=== PATIENT | male | born 1975 | race Caucasian/White ===

== ENCOUNTER 2022-09-04 09:43 | Emergency (ER) | payer OTHER, SELFPAY ==
[2022-09-04] VITALS (11 sets, daily range): BP systolic 142–170; BP diastolic 101–109; PULSE 92–107; RESP 16–18; TEMP 36.8; O2SAT 97–100; BMI 34.7
--- NOTE | 2022-09-04 10:05 | CT_ITS ---
WS: [id number] CT ABDOMEN PELVIS TECHNIQUE: Contrast-enhanced CT of the abdomen and pelvis with coronal and sagittal reformatted image s. CLINICAL INFORMATION: cramping ab pain, bloody diarrhea COMPARISON: None. DLP: 1041.[address] scans at [facility] use at least one of these dose optimization techniques: automated e xposure control; mA and/or kV adjustment per patient size (includes targeted exams where dose is matc hed to clinical indication); or iterative reconstruction. FINDINGS: Prior gastric bypass. Cholecystectomy. Diffuse diallo colonic thickening with submucosal enhancement inv olving the entire colon compatible with colitis. This is likely infectious or inflammatory. Recommend correlation with history of inflammatory bowel disease. No drainable fluid collections. No free flui d in the pelvis. Lung bases are well aerated. Diffuse fatty infiltration liver. Normal portal vein and splenic vein. N ormal spleen. Normal pancreatic parenchymal enhancement. Gastric bypass. Adrenal glands are normal. C eliac and SMA are patent. Normal caliber abdominal aorta. Normal renal parenchymal enhancement. No hydronephrosis. LEFT renal cortical cysts. Prominent lymph n ode in the upper abdomen at the GE junction nonspecific but likely reactive. Reactive lymph nodes in the RIGHT lower quadrant. 2 vague low-attenuation areas in the RIGHT hepatic lobe near the gallbladde r fossa likely hepatic cysts, hemangiomas, or focal fat measuring approximately [address]/CT abdomen pelvis w con* [id number] IMPRESSION: 1. Above-described findings compatible with diffuse pancolitis likely infectio us or inflammatory. Recommend correlation with inflammatory bowel disease. A fe w reactive lymph nodes in the RIGHT lower quadrant. 2. No drainable fluid collections. 3. Terminal ileum appears normal. 4. Diffuse fatty infiltration of the liver. 5. Prior gastric bypass. Attempted verbal notification TOM Jonas at 09/04/2022 11:17 AM.
--- NOTE | 2022-09-04 10:06 | ED_ITS ---
HPI - Abdominal Pain General: Chief Complaint: Abdominal Pain Stated Complaint: abd pain, hasn't eaten in three days Time Seen by Provider: 09/04/22 09:45 Source: patient Mode of arrival: ambulatory Limitations: no limitations History of Present Illness: Patient is a 47-year-old male who presents to ED today along with his for concerns of severe abdominal pain/cramping, nausea, and diarrhea over the past 48 to 72 hours. Patient states he has noticed bright red blood in his diarrhea stools. He is reporting approximately 50 loose stools over a 24-hour period. He states he feels nauseous but has not had any episodes of emesis. No fevers. States he has not ate or drank anything over the past 72 hours as this seems to worsen symptoms. Denies sick contacts or poor food exposures. Previous abdominal surgeries include a cholecystectomy and gastric sleeve surgery. Patient does report fairly heavy chronic alcohol use. Denies NSAID use. MD elicited complaint: abdominal pain Pertinent past history: none Onset (ago): day(s) Pain Consistency: constant Location: Diffuse Severity: severe Quality: cramping Radiation: none Migration to: no migration Exacerbating factors: eating Relieving factors: nothing Associated Symptoms: Reports GI cramping, diarrhea, hematochezia and nausea; Denies chills, dysuria, fever(s), heartburn, hematuria, melena and vomiting Review of Systems Const: Denies: fever(s), chills, body aches, fatigue or malaise Card: Denies: chest pain Resp: Denies: dyspnea GI: Reports: abdominal pain, nausea, diarrhea, GI cramping and hematochezia; Denies: vomiting, heartburn or melena : Denies: flank pain, dysuria or hematuria Musc: Denies: neck pain, back pain, extremity pain or joint pain Skin/Breast: Denies: rash Neuro: Reports: dizziness; Denies: headache(s), numbness in extremities, weakness in extremities or sensory changes Physical Exam Const: COMMON NORMALS: patient oriented x3, no limitations and alert GENERAL APPEARANCE: cooperative and other (appears uncomfortable secondary to pain) NUTRITIONAL APPEARANCE: overweight ORIENTATION/CONSCIOUSNESS: Yes a wake, Yes oriented to person, Yes oriented to place and Yes oriented to time HENMT: COMMON NORMALS: normocephalic and atraumatic HEAD & SCALP: normal to inspection, normocephalic and atraumatic Resp: COMMON NORMALS: normal respiratory effort and clear to auscultation bilaterally AUSCULTATION: clear to auscultation bilaterally Cardio: COMMON NORMALS: regular rhythm RATE: tachycardic RHYTHM: regular rhythm GI: COMMON NORMALS: Normal to inspection, nondistended, normoactive bowel sounds present, Soft to palpation, No hepatosplenomegaly present and no masses INSPECTION: Yes normal to inspection AUSCULTATION: Yes normoactive bowel sounds PALPATION: Yes Soft to palpation, Yes Tenderness to palpation present (GI) (diffusely but mainly to lower abdomen ), No Guarding due to palpation present (GI), No Rigid due to palpation and Yes No hepatosplenomegaly present : COMMON NORMALS: Yes no CVA tenderness BLADDER/KIDNEY EXAM: Yes no CVA tenderness Back/Pelvis: COMMON NORMALS: no CVA tenderness Extremity: COMMON NORMALS: no clubbing, cyanosis or edema, no calf tenderness and no pedal edema GENERAL: Yes normal exam except as noted Neuro: MERLY COMA SCALE: document GCS findings [place] coma scale eye opening: Spontaneous [place] coma scale verbal response: Orientated [place] coma scale motor response: Obey commands Merly coma scale total score: 15 COMMON NORMALS: patient oriented x3, moves all extremities, no focal motor deficits, no sensory deficits noted and gait normal SENSORIUM/ORIENTATION: Yes alert, Yes oriented to person, Yes oriented to place and Yes oriented to time Skin: COMMON NORMALS: no rashes or lesions noted GENERAL SKIN EXAM: no rashes or lesions noted Course Vital Signs: Vital signs: Vital Signs Temperature 98.3 F 09/04/22 09:46 Pulse Rate 98 09/04/22 11:37 Respiratory Rate 16 09/04/22 11:37 Blood Pressure 148/103 09/04/22 12:10 Pulse Oximetry 99 09/04/22 12:10 Oxygen Delivery Me thod 09/04/22 11:37 MDM - Abdominal Pain Medical Decision Making Patient is a 47-year-old male here for abdominal cramping and bloody diarrhea over the past [address] scan showing diffuse pancolitis likely infectious or inflammatory. Patient states cramping has vastly improved since he has been here. He has not had any diarrhea while here (thus stool samples cannot be collected). He initially arrived mildly tachycardic but this has resolved. White count is 11.7 with a normal lactate. Patient does have a fairly significant metabolic acidosis with a gap of 28.3. Potassium 3.3. Carbon dioxide 16. Patient was given oral potassium here. He was given 2 L of fluids. He has mildly elevated LFTs most likely to his chronic alcohol use. Gave patient option of hospitalization but he would like to go home at this point. He was given IV Cipro/Flagyl. Discharge home on oral Cipro, Flagyl, pain/nausea meds, and will have him follow-up with general surgery. Strict return ED precautions given to him and his who both verbalized understanding. Lab Data 09/04/22 10:38 09/04/22 10:38 Labs/Radiology: Radiology Impressions Abdomen/Pelvis CT 09/04/22 10:05 IMPRESSION: 1. Above-described findings compatible with diffuse pancolitis likely infectious or inflammatory. Recommend correlation with inflammatory bowel disease. A few reactive lymph nodes in the RIGHT lower quadrant. 2. No drainable fluid collections. 3. Terminal ileum appears normal. 4. Diffuse fatty infiltration of the liver. 5. Prior gastric bypass. Attempted verbal notification TOM Jonas at 09/04/2022 11:17 AM. Laboratory Results WBC 11.7 10^3/uL (4.0-10.0) H 09/04/22 10:38 RBC 6.13 10^6/uL (4.1-5.3) H 09/04/22 10:38 Hgb 14.5 g/dL (11.7-16.6) 09/04/22 10:38 Hct 46.9 % (42.0-52.0) 09/04/22 10:38 MCV 76.5 fl (80-94) L 09/04/22 10:38 MCH 23.7 pg (28.0-34.0) L 09/04/22 10:38 MCHC 30.9 g/dL (30.0-36.0) 09/04/22 10:38 RDW 15.7 % (12.1-15.1) H 09/04/22 10:38 Plt Count 328 10^3/cmm (130-400) 09/04/22 10:38 MPV 10.2 fL (7.4-10.4) 09/04/22 10:38 Neut % (Auto) 74.2 % 09/04/22 10:38 Lymph % (Auto) 12.1 % 09/04/22 10:38 [place] % (Auto) 11.1 % 09/04/22 10:38 Eos % (Auto) 1.2 % 09/04/22 10:38 Baso % (Auto) 0.8 % 09/04/22 10:38 Neut # (Auto) 8.69 10^3/uL (1.8-7.7) H 09/04/22 10:38 Lymph # (Auto) 1.4 10^3/uL (0.8-4.8) 09/04/22 10:38 [place] # (Auto) 1.3 10^3/uL (0.2-0.9) H 09/04/22 10:38 Eos # (Auto) 0.1 10^3/uL (0.0-0.8) 09/04/22 10:38 Baso # (Auto) 0.1 10^3/uL (0.0-0.1) 09/04/22 10:38 Nucleated RBC % (auto) 0 % 09/04/22 10:38 Nucleated RBCs # 0.0 /100WBC 09/04/22 10:38 Sodium 137 mmol/L (136-145) 09/04/22 10:38 Potassium 3.3 mmol/L (3.5-5.1) L 09/04/22 10:38 Chloride 96 mmol/L (98-107) L 09/04/22 10:38 Carbon Dioxide 16 mmol/L (22-29) L 09/04/22 10:38 Anion Gap 28.3 (5-19) H 09/04/22 10:38 BUN 7 mg/dL (6-20) 09/04/22 10:38 Creatinine 0.7 mg/dL (0.7-1.2) 09/04/22 10:38 GFR Calculation 120.9 mL/min (90-130) 09/04/22 10:38 Glucose 113 mg/dL (65-115) 09/04/22 10:38 Calculated Osmolality 283 mOsm/kg (285-295) L 09/04/22 10:38 Lactic Acid 1.3 mmol/L (0.5-2.2) 09/04/22 11:09 Calcium 9.7 mg/dL (8.5-10.5) 09/04/22 10:38 Total Bilirubin 0.4 mg/dL (0.15-1.2) 09/04/22 10:38 AST 45 U/L (0-40) H 09/04/22 10:38 ALT 63 U/L (0-41) H 09/04/22 10:38 Alkaline Phosphatase 93 U/L (40-130) 09/04/22 10:38 Total Protein 7.6 g/dL (6.6-8.7) 09/04/22 10:38 Albumin 4.4 g/dL (3.5-5.2) 09/04/22 10:38 Globulin 3.2 g/dL (1.3-4.6) 09/04/22 10:38 Lipase 31 U/L (13-60) 09/04/22 10:38 Discharge Plan Discharge Condition: Stable Coding Level of Care Code ED Manager Outreach for Ilyag Fwd Exam Comprehensive
[2022-09-04] MEDS: sodium chloride 0.9% 1,000 ML 999 ML IV ×2 (10:34→11:31)
[2022-09-04] MEDS: ondansetron 2 mg/ML SDV 2 mL 4 MG IVP (10:34)
[2022-09-04] MEDS: morphine 4 mg/mL SDV 1 mL IVP (10:36)
[2022-09-04 10:44] LABS: Basophils # 0.1 10^3/uL (0.0-0.1); Basophils % 0.8 %; Eosinophils # 0.1 10^3/uL (0.0-0.8); Eosinophils % 1.2 %; Hematocrit 46.9 % (42.0-52.0); Hemoglobin 14.5 g/dL (11.7-16.6); Lymphocytes # 1.4 10^3/uL (0.8-4.8); Lymphocytes % 12.1 %; Mean Corpuscular HGB Conc 30.9 g/dL (30.0-36.0); Mean Corpuscular Hemoglobin 23.7 pg (28.0-34.0); Mean Corpuscular Volume 76.5 fl (80-94); Mean Platelet Volume 10.2 fL (7.4-10.4); Monocytes # 1.3 10^3/uL (0.2-0.9); Monocytes % 11.1 %; Neutrophils # 8.69 10^3/uL (1.8-7.7); Neutrophils % 74.2 %; Nucleated Red Blood Cells % 0 %; Platelet Count 328 10^3/cmm (130-400); Red Blood Count 6.13 10^6/uL (4.1-5.3); Red Cell Distribution Width 15.7 % (12.1-15.1); White Blood Count 11.7 10^3/uL (4.0-10.0)
[2022-09-04] MEDS: iohexol 350 mg/mL 500 mL Btl (per mL) IV (10:54)
[2022-09-04 11:03] LABS: Alanine Aminotransferase 63 U/L (0-41); Albumin Level 4.4 g/dL (3.5-5.2); Alkaline Phosphatase 93 U/L (40-130); Anion Gap 28.3 (5-19); Aspartate Amino Transferase 45 U/L (0-40); Blood Urea Nitrogen 7 mg/dL (6-20); Calcium 9.7 mg/dL (8.5-10.5); Carbon Dioxide 16 mmol/L (22-29); Chloride 96 mmol/L (98-107); Creatinine Clr Calc Pharmacy 152.0616; Globulin 3.2 g/dL (1.3-4.6); Glomerular Filtration Rate 120.9 mL/min (90-130); Glucose 113 mg/dL (65-115); Lipase 31 U/L (13-60); Osmolality Calculated 283 mOsm/kg (285-295); Potassium 3.3 mmol/L (3.5-5.1); Sodium 137 mmol/L (136-145); Total Bilirubin 0.4 mg/dL (0.15-1.2); Total Protein 7.6 g/dL (6.6-8.7)
[2022-09-04 11:31] LABS: Lactic Sepsis W/Reflex 1.3 mmol/L (0.5-2.2)
[2022-09-04] MEDS: potassium chloride ER 20 mEq Tablet 40 MEQ PO (11:35)
[2022-09-04] MEDS: metroNIDAZOLE IV 500 MG/100 ML PREMIX 100 MG IV (12:17)
[2022-09-04 13:03] LABS: Add Urine Microscopic? YES; Bilirubin Urine 1+ (Negative); Blood Urine Neg (Negative); Glucose Urine UA Norm (Normal); Ketones Urine 3+ (Negative); Leukocyte Esterase Urine Trace (Negative); Nitrate Urine Negative (Negative); Protein Urine 1+ (Negative); Urine Appearance Clear (CLEAR); Urine Color Yellow (Yellow); Urobilinogen Urine Norm (Negative); pH Urine 6.5 (5-7)
[2022-09-04 13:12] LABS: RBC Urine RARE /hpf (0-2); Squamous Epithelial Cell Urine RARE /hpf (0-5); WBC Urine 0-4 /hpf (0-5)
[2022-09-04 13:13] LABS: Add Urine Culture? No; Bacteria Urine TRACE /hpf; Hyaline Casts Urine 0-4 /lpf; Mucus Urine TRACE /hpf
[2022-09-04] MEDS: ciprofloxacin 400 MG/200 ML PREMIX 200 MG IV (13:16)
--- NOTE | 2022-09-07 10:33 | DCPLANNER ---
Addendum entered by Juana Laird 09/09/22 12:55: manager truck received the following message from the general surgery clinic regarding follow up appointment: Dr. Lobo is out of office until 09/14. Please send patient elsewhere. Thanks! manager truck called patient and explained that Dr. Rowe was out of network with insurance and would need to refer patient somewhere else, that correctional case records supervisor was calling to confirm where patient would like the referral sent. Patient stated that he does not feel that he needs the referral at this time that he is feeling better. Original Note: manager truck had message to schedule a follow up appointment for patient with general surgery. manager truck sent patients information to the front office staff at general surgery. Patients information will be printed and reviewed. Clinic will call patient with appointment information.
== END 2022-09-04 14:10 | disposition home or self-care (01) ==
PROVIDERS: Emergency Provider Physician Assistant
DX: R10.9 Unspecified abdominal pain (principal); K92.1 Melena; R19.7 Diarrhea, unspecified
CPT/HCPCS: 74177; 80053; 81001; 83605; 83690; 85025; 96367; 96375; 99285; J0744; J2270; J2405; J3490; J7030; Q9967

== ENCOUNTER → 2022-09-14 10:47 | Outpatient (BNVA) | payer OTHER, SELFPAY | PROVIDERS: PCP Clinical Nurse Specialist Adult Health; Visit Provider Clinical Nurse Specialist Adult Health | DX: K52.9 Noninfective gastroenteritis and colitis, unspecified (principal); R22.1 Localized swelling, mass and lump, neck | CPT/HCPCS: 80048; 85025 ==

== ENCOUNTER 2022-10-05 10:48 | Outpatient (CLI) | payer OTHER, SELFPAY ==
--- NOTE | 2022-10-05 11:00 | US_ITS ---
WS: [id number] THYROID ULTRASOUND HISTORY: nodule on neck COMPARISON: None available. Right lobe: 1.7 cm x 0.9 cm x 3.6 cm (w x ap x l). Volume: 2.9 cm3. Normal size and echotexture. No significant are dominant nodules are present. Left lobe: 1.4 cm x 1.1 cm x 3.8 cm (w x ap x l). Volume: 3.0 cm3. Normal size and echotexture. No significant or dominant nodules are present. Isthmus: 0.3 cm. There is a palpable and clinically visible mass in the neck just to the RIGHT of midline. Mass is of decreased echogenicity and homogeneous measuring 4.0 x 3.2 x 4.9 cm. Mass is just to the RIGHT of mid line and displacing the soft tissues. On some images there is color Doppler present within this mass. Does not appear to contact the thyroid gland on the imaging submitted. No adenopathy. US/US thyroid [id number] IMPRESSION: 1. Normal thyroid gland. 2. Large homogeneous soft tissue mass with increased vascularity just to the R IGHT of midline. This mass needs to be further evaluated to confirm etiology. I f the increased vascularity is not artifactual this is a solid mass and may be related to a nerve sheath tumor or the submandibular gland neoplasm. With incre ased vascularity thyroglossal duct cyst or epidermoid is thought less likely. R ecommend neck CT with IV contrast for further characterization.
== END 2022-10-05 10:49 | disposition home or self-care (01) ==
PROVIDERS: PCP Clinical Nurse Specialist Adult Health; Visit Provider Clinical Nurse Specialist Adult Health
DX: R22.1 Localized swelling, mass and lump, neck (principal)
CPT/HCPCS: 76536

== ENCOUNTER 2022-10-14 16:29 | Outpatient (CLI) | payer OTHER, SELFPAY ==
--- NOTE | 2022-10-14 16:30 | CT_ITS ---
WS: [id number] CT NECK TECHNIQUE: Contrast-enhanced CT of the neck with coronal and sagittal reformatted images. CLINICAL INFORMATION: neck mass, palpable and seen on US of thyroid COMPARISON: None. DLP: 269.[address] scans at [facility] use at least one of these dose optimization techniques: automated e xposure control; mA and/or kV adjustment per patient size (includes targeted exams where dose is matc hed to clinical indication); or iterative reconstruction. FINDINGS: In the area of concern, RIGHT neck, there is a peripherally enhancing low-attenuation cystic-appearin g mass most compatible with brachial cleft cyst. This measures approximately 4.8 x 3.9 x 4.4 cm AP by transverse by craniocaudal. This extends into the RIGHT periglottic fat. This appears to originate f rom the RIGHT piriform sinus and overlies the RIGHT hyoid and thyroid cartilage. No significant airwa y narrowing. This extends from the piriform sinus at the apex to the upper aspect of the RIGHT thyroi d lobe. Thyroid appears normal. Peripheral enhancement suspicious for infection and underlying fistulous trac t from the piriform sinus. Recommend ENT consultation for further evaluation and possible resection. Mastoid air cells are well aerated. Paranasal sinuses are well aerated. Normal posterior nasopharynx. Normal parapharyngeal fat. Normal palatine tonsils. Normal subglottic airway. Parotid glands are normal. Normal submandibular glands. Tongue base is normal in appearance. Lung api jarad are well aerated. No cervical lymphadenopathy. CT/CT neck w con* [id number] IMPRESSION: 1. Peripherally enhancing low-attenuation cystic-appearing lesion in the area of concern most compatible with 4th brachial cleft cyst or less likely thyroglo ssal duct cyst. This appears to originate from the RIGHT piriform sinus and ove rlies the RIGHT hyoid and thyroid cartilage. No significant airway narrowing. 2. Peripheral enhancement of the cystic lesion suggestive of infection. 3. Mild associated effacement involving the RIGHT aspect of the pharynx and lucero praglottic larynx. No high-grade airway narrowing. 4. Thyroid gland appears normal. 5. Normal salivary glands. 6. No other acute findings. Recommend ENT consultation.
[2022-10-14] MEDS: iohexol 350 mg/mL 100 mL Btl IV (17:07)
== END 2022-10-14 16:30 | disposition home or self-care (01) ==
LOC: RAD 16:32
PROVIDERS: PCP Clinical Nurse Specialist Adult Health; Visit Provider Clinical Nurse Specialist Adult Health
DX: R22.1 Localized swelling, mass and lump, neck (principal)
CPT/HCPCS: 70491; Q9967

== ENCOUNTER 2022-11-19 10:30 | Day surgery (SDC) | payer OTHER, SELFPAY ==
[2022-11-19] VITALS (20 sets, daily range): BP systolic 148–174; BP diastolic 97–118; PULSE 86–115; RESP 16–18; TEMP 36.6–36.8; O2SAT 94–100
[2022-11-19] MEDS: sodium chloride 0.9% 1,000 ML 30 ML IV (10:58)
--- NOTE | 2022-11-19 11:04 | W.PM.OPSUD ---
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 PLANNED PROCEDURE: Operation Date: 11/19/22 11:50 Proposed Procedures p 10063 - exsicion of branchial cleft cyst and tracks Q18.0(Not Applicable) - Lyle Banks MD
[2022-11-19] MEDS: ceFAZolin 2,000 MG in sodium chloride 0.9% (plus) 50 ML 100 MG IV (11:23)
[2022-11-19] MEDS: lidocaine-epi 2% 1.7mL Cartridge (OR Only) 13.6 ML XX (11:59)
--- NOTE | 2022-11-19 12:10 | ANES.PREANE2 ---
Pre-Anesthetic Assessment Height/Weight: Height 1.73 m Weight 102.965 kg Temp Pulse Resp BP Pulse Ox O2 Del Method 98.2 F 93 18 148/103 97 Room Air 11/19/22 11:06 11/19/22 11:06 11/19/22 11:06 11/19/22 11:06 11/19/22 11:06 11/19/22 11:06 Preop Diagnosis: Right fourth branchial cleft cyst Operation Date: 11/19/22 11:50 Proposed Procedures p 57386 - exsicion of branchial cleft cyst and tracks Q18.0(Not Applicable) - Lyle Banks MD Familial anesthetic complications: none Was Beta Monica taken within 24 hours: N/A Was Clonidine taken within 24 hours: N/A Last intake: Intake Last Liquid Date 11/18/22 Last Liquid Time 23:00 Last Solid Date 11/18/22 Last Solid Time 20:00 Social Alcohol and No tobacco Exam alert, oriented x 3, clear to auscultation bilaterally and regular rate & rhythm Airway Submandibular: within normal limits Cervical ROM: within normal limits Mallampati: Class II Dentition: partials Metabolic Morbid Obesity Anesthetic Plan ASA status: 2 Anesthesia: General Medications/Allergies Home Medications Medication Instructions Recorded Confirmed Last Taken Type ondansetron 4 mg disintegrating 4 mg PO Q8H PRN nausea and 09/04/22 11/18/22 Unknown Rx tablet vomiting #14 tabs anastrozole 1 mg tablet 1 mg PO DAILY 10/12/22 11/18/22 11/18/22 History testosterone cypionate 200 mg/mL 60 mg SUBCUT .Q 3.5 days 10/12/22 11/18/22 11/18/22 History intramuscular oil Allergies Allergy/AdvReac Type Severity Reaction Status Date / Time NSAIDS (Non-Steroidal Allergy Mild due to Verified 11/18/22 11:18 Anti-Inflamma history of gastric bypass surgery Current Medications Generic Name Dose Route Start Last Admin Trade Name Freq PRN Reason Stop Dose Admin Sodium Chloride 1,000 mls @ 30 mls/hr 11/19/22 10:45 11/19/22 10:58 Sodium Chloride 0.9% IV 11/20/22 10:44 30 mls/hr .Q24H SILVESTRE Administration PFSH Anesthesia Medical History Colitis 2022 Fatty liver Heavy alcohol use Morbid obesity Surgical History Hx of cholecystectomy 2017 Hx of gastric bypass 2015 Family History Father Cancer pancreatic cancer- Social History Alcohol intake: current Alcohol intake frequency: 0-2 Drinks per Day Alcohol type: beer Data Anesthesia Cardiac Studies: No Data to Display
--- NOTE | 2022-11-19 13:23 | P.OP_ITS ---
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 Pathology: Same Surgeon: Lyle Banks MD Anesthesia: General and Local Estimated blood loss: 50 mL Complications: No complications encountered Findings: 47-year-old male patient with a large spherical mass in the right mid neck enlarging over several months. CT scan reading was likely to be a fourth branchial cleft cyst and tract emanating from the piriform sinus on the right side. The patient is being brought to the operating room to undergo excision of this mass and tract. Brief History: 47-year-old male patient has a large spherical firm mass in the right mid neck. CT scan evidence according to radiologist shows likely to be a branchial cleft cyst with tract emanating from the piriform sinus on the right side. This mass does palpate more anterior than typical but to far lateral for most thyroglossal duct cyst. Patient is being brought to the operating room today to undergo ex cision of this mass and tract. The procedure its risks and complications of been explained in detail to the patient. These risks include bleeding infection numbness scarring swelling bruising recurrence need for additional treatment weakness or paralysis of the tongue, shoulder, or vocal cords. More serious risks associated with heart attack stroke or not surviving the surgery and anesthetic risks were also discussed. Informed consent was granted and witnessed. Procedure: Description of procedure: The patient was placed on the operating table in the supine position. Adequate general endotracheal tube anesthesia was obtained. A timeout was accomplished identifying the patient date of plan procedure allergies fire risk and medications given. With all in agreement the procedure continued. The patient's riley was attempted to be saved as much as possible. It was folded from under over the chin and taped in place. Trimming was done with the hernan. Sign the site was noted. The skin overlying the planned incision in the mid neck skin crease line was cleansed with alcohol and then a total of 5.1 mL of 2% Xylocaine with 1-100,000 epinephrine was used to infiltrate the subcutaneous tissue and skin. The patient was then prepped and draped in usual fashion. Incision was made with cut mode of the Bovie extending for approximately 10 cm medial to lateral. This was carried down to the subcutaneous fat layer in which further dissection was carried deep with dissectors and bipolar cautery and needle tip Bovie. Hemostasis was attained as the dissection proceeded. Layer after layer was carried down through the platysma and then multiple layers were found overlying this mass including strap muscles. These were carefully dissected free. As this dissection carried out in all directions it was evident that this had more of the appearance of a thyroglossal duct cyst than a branchial cleft cyst. Inferiorly it was emanating from a pyramidal lobe extension from the thyroid gland. The pyramidal lobe was clipped with large clips and cut superior to the clips. Then dissection was carried more superiorly on the undersurface of the cystic mass. Multiple areas of extreme scarring and adhesions were noted. A few small perforations of the cystic lining occurred during the dissection. These were clamped with Allis forceps. They were used for retraction. Further dissection of the strap muscles off the mass was accomplished laterally and up to the hyoid bone. When it was clear that this was a in fact sending a tract up through the central portion of the hyoid bone hyoid bone centrally was pared with dissection and bipolar cautery. Then a bone rongeur was used to cut the attachments laterally on both sides. This then allowed for further dissection superiorly and from both the superior and inferior aspects of the hyoid the dissection was carried up into the musculature of the tongue near the base of the tongue. This was clipped with large clips and again in this case inferior to the clips the specimen was cut free. The specimen was forwarded to the pathologist for permanent section diagnosis. The area was irrigated with copious amounts of saline. There was no sign of any active bleeding at this time. A [place] drain quarter-inch was cut to size and placed to the depths up into the base of the tongue and brought out through the central portion of the incision. The incision was then closed in 3 layers closing the strap muscles first then the platysma muscle and then the subcutaneous layer. Then the skin was closed with skin nolvia. The drain was stapled to the neck as well. Dressings were applied after cleansing the neck removal of the drapes applying Neosporin ointment and then fluffs were placed followed by 2 large Kerlix rolls wrapped around the neck with the chin flexed forward. Once this was applied the dressing was taped in place. Patient was then returned to anesthesia for wake-up and extubation. He tolerated the procedure well had an estimated blood loss of 50 mL or less and arrived in recovery in stable condition.
[2022-11-19] MEDS: neomycin-poly-bacitracin oint 28 gm 1 APPLIC TOPICAL (13:24)
[2022-11-19] MEDS: fentaNYL 50 mcg/mL INJ 2mL IVP ×2 (13:40→14:19)
--- NOTE | 2022-11-19 14:00 | PC.NURSE ---
Pt blood pressures elevated, spoke to Dr Ching and Hydralazine 10MG IVP given. Bloody drainage noted to dressing, Dr Banks at bedside aware, you can reinforce the dressing with more Kerlix, dressing reinforced.
[2022-11-19] MEDS: hyDRALAzine 20 mg/mL INJ 1 mL 10 MG IVP (14:01)
--- NOTE | 2022-11-19 14:27 | PC.NURSE ---
Dr Ching aware of blood pressures, okay to transfer pt to OPS.
[2022-11-19] MEDS: oxyCODONE-APAP 5-325 mg Tablet 2 TAB PO (14:54)
--- NOTE | 2022-11-19 15:19 | ANE.PACU2 ---
Inpatient post-anesthesia follow up: Airway intact: Yes Vital signs: Temperature 98.3 F Pulse Rate 114 Respiratory Rate 18 Blood Pressure 169/114 Pulse Oximetry 98 Oxygen Delivery Me thod Room Air Oxygen Flow Rate 6 Fraction of Inspir ed Oxygen Hydration adequate: Yes Nausea and vomiting: No Pain level: 3 Mental status: Baseline
== END 2022-11-19 15:35 | disposition home or self-care (01) ==
PROVIDERS: PCP Clinical Nurse Specialist Adult Health; Visit Provider Otolaryngology
PROC: (CPT 60280; principal; 2022-11-19 11:40)
DX: Q89.2 Congenital malformations of other endocrine glands (principal); E66.01 Morbid (severe) obesity due to excess calories; Z68.34 Body mass index [BMI] 34.0-34.9, adult; F10.90 Alcohol use, unspecified, uncomplicated; K76.0 Fatty (change of) liver, not elsewhere classified
CPT/HCPCS: 60280; 88307; J0360; J0690; J1100; J1170; J2250; J2405; J2704; J3010; J3490; J7030

== ENCOUNTER 2024-05-03 07:34 | Outpatient (CLI) | payer SELFPAY ==
[2024-05-03 08:02] LABS: Basophils # 0.2 10^3/uL (0.0-0.1); Basophils % 2.6 %; Eosinophils # 0.2 10^3/uL (0.0-0.8); Eosinophils % 2.5 %; Hematocrit 41.2 % (37-53); Lymphocytes # 1.8 10^3/uL (0.8-4.8); Lymphocytes % 28.8 %; Mean Corpuscular HGB Conc 28.2 g/dL (30-55); Mean Corpuscular Hemoglobin 20.6 pg (27-33); Mean Corpuscular Volume 73.2 fl (82-101); Mean Platelet Volume 9.7 fL (7.4-10.4); Monocytes # 0.8 10^3/uL (0.2-0.9); Monocytes % 13.6 %; Neutrophils # 3.17 10^3/uL (1.8-7.7); Neutrophils % 51.8 %; Nucleated Red Blood Cells % 0 %; Platelet Count 287 10^3/cmm (157-399); Red Blood Count 5.63 10^6/uL (3.85-5.65); Red Cell Distribution Width 18.6 % (12.1-15.1); White Blood Count 6.11 10^3/uL (3.29-11.43)
[2024-05-03 08:37] LABS: Alanine Aminotransferase 75 U/L (0-41); Albumin Level 4.2 g/dL (3.5-5.2); Alkaline Phosphatase 102 U/L (40-130); Anion Gap 14.3 (5-19); Aspartate Amino Transferase 64 U/L (0-40); Blood Urea Nitrogen 9 mg/dL (6-20); Calcium 9.2 mg/dL (8.5-10.5); Carbon Dioxide 27 mmol/L (22-29); Chloride 103 mmol/L (98-107); Chol HDL Ratio 3.44 mg/dL (1.0-5.00); Cholesterol 165 mg/dL (0-200); Globulin 2.7 g/dL (1.3-4.6); Glomerular Filtration Rate 120.4 mL/min (90-130); Glucose 108 mg/dL (65-115); HDL Cholesterol 48 mg/dL (60-100); LDL Cholesterol Calculated 79 mg/dL (50-129); LDL HDL Ratio 1.65 RATIO (0.00-3.22); Osmolality Calculated 289 mOsm/kg (285-295); Potassium 4.3 mmol/L (3.5-5.1); Sodium 140 mmol/L (136-145); Testosterone Total 254.5 ng/dL (249-836); Thyroid Stimulating Hormone 2.49 uIU/mL (0.27-4.20); Total Bilirubin 0.4 mg/dL (0.15-1.2); Total Protein 6.9 g/dL (6.6-8.7); Triglycerides 192 mg/dL (0-150)
[2024-05-03 08:46] LABS: Folate Level 16.4 ng/mL (4.5-32.2)
[2024-05-03 09:15] LABS: 25 Hydroxy Vitamin D 20 ng/mL (30-100)
== END 2024-05-03 07:35 | disposition home or self-care (01) ==
LOC: LAB 07:36
PROVIDERS: PCP Family Medicine; Visit Provider Family Medicine
DX: Z78.9 Other specified health status (principal); I10 Essential (primary) hypertension; R79.89 Other specified abnormal findings of blood chemistry; E29.1 Testicular hypofunction; E55.9 Vitamin D deficiency, unspecified
CPT/HCPCS: 36415; 80053; 80061; 82306; 82746; 84403; 84443; 85025